=== PATIENT | female | born 1995 | race Caucasian/White ===

== ENCOUNTER → 2018-10-12 | Outpatient (CLI) | payer OTHER ==
[~2018-10-12] MED LIST: DIVA500T2 PO; ETON1VAG VG; IBUP200C6 PO; SUMA1TAB PO
== END | disposition home or self-care (01) ==
LOC: CFH 09:42
PROVIDERS: ATTEND Obstetrics & Gynecology
DX: R10.32 Left lower quadrant pain (principal); Z97.5 Presence of (intrauterine) contraceptive device
CPT/HCPCS: 74018

== ENCOUNTER 2018-10-30 08:47 | Day surgery (SDC) | payer OTHER ==
[~2018-10-30] VITALS: Ht 160 cm; Wt 61.1 kg
[2018-10-30 09:04] VITALS: BP 119/72
[2018-10-30] MEDS ORDERED: ACETAMINOPHEN 500 MG TABLET PO ONE (09:30)
[2018-10-30] MEDS ORDERED: DIAZEPAM 5 MG TABLET PO ONE (09:30)
[2018-10-30] MEDS ORDERED: LACTATED RINGERS 1,000 ML IV SCH (09:46)
[2018-10-30] MEDS ORDERED: FLUORESCEIN SODIUM 500 MG/5 ML ONE (10:00)
[2018-10-30] MEDS ORDERED: LIDOCAINE 1%-EPI 1:100K, 20ML ONE ×2 (10:00→11:16)
[2018-10-30 10:03] LABS: BASOPHILS # (AUTO) 0.04 x10^3/uL (0-0.1); BASOPHILS % (AUTO) 1 % (0-1); EOSINOPHILS # (AUTO) 0.11 x10^3/uL (0-0.4); EOSINOPHILS % (AUTO) 2 % (1-7); LYMPHOCYTES # (AUTO) 2.01 x10^3/uL (1-3.4); LYMPHOCYTES % (AUTO) 32 % (22-44); MD NO; MEAN CORPUSCULAR HEMOGLOBIN 29.9 pg (27.0-34.8); MEAN CORPUSCULAR HGB CONC 33.5 g/dL (32.4-35.8); MEAN CORPUSCULAR VOLUME 89.5 fL (80-100); MEAN PLATELET VOLUME 8.1 fL (7.4-10.4); MONOCYTES # (AUTO) 0.42 x10^3/uL (0.2-0.8); MONOCYTES % (AUTO) 7 % (2-9); NEUTROPHILS # (AUTO) 3.69 x10^3/uL (1.8-6.8); NEUTROPHILS % (AUTO) 59 % (42-75); PLATELET COUNT 228 x10^3/uL (130-400); RED CELL DISTRIBUTION WIDTH 13.6 % (9.6-15.2)
[2018-10-30 10:15] LABS: CALCIUM 9.3 mg/dL (8.5-10.1)
[2018-10-30 10:42] LABS: ALANINE AMINOTRANSFERASE 14 U/L (12-78); ALBUMIN 4.2 g/dL (3.4-5.0); ALKALINE PHOSPHATASE 74 U/L (45-117); ANION GAP 7 mmol/L (5-15); BILIRUBIN,TOTAL 0.3 mg/dL (0.2-1.0); CHLORIDE 111 mmol/L (98-107); TOTAL PROTEIN 7.5 g/dL (6.4-8.2)
[2018-10-30 10:51] LABS: HCG UR SG 1.023 (1.003-1.030); MICROSCOPIC AUTO
[2018-10-30] MEDS ORDERED: MIDAZOLAM 1 MG/ML, 2ML ONE (10:52)
[2018-10-30] MEDS ORDERED: FENTANYL PF 250 MCG/5ML ONE (10:53)
[2018-10-30 10:59] LABS: CULTURE INDICATED? YES
[2018-10-30] MEDS ORDERED: PROPOFOL 10 MG/ML, 20ML ONE (11:40)
[2018-10-30] MEDS ORDERED: ONDANSETRON ODT 8 MG PO PRN (12:00)
[2018-10-30] MEDS ORDERED: PROMETHAZINE 25 MG/ML, 1ML IV PRN (12:00)
[2018-10-30] MEDS ORDERED: MEPERIDINE/PF 25MG/0.5ML IVPush PRN (12:00)
[2018-10-30] MEDS ORDERED: OXYcodone 5 MG/5 ML ORAL.SOL UDC PO PRN (12:00)
[2018-10-30] MEDS ORDERED: HYDROmorphone 2 MG/ML, 1ML IVPush PRN (12:00)
[2018-10-30] MEDS ORDERED: DIAZEPAM 5 MG/ML, 2ML IVPush PRN (12:00)
[2018-10-30] MEDS ORDERED: ONDANSETRON 2MG/ML, 2ML IV PRN (12:00)
[2018-10-30] MEDS ORDERED: ONDANSETRON 2MG/ML, 2ML ONE (12:12)
[2018-10-30] MEDS ORDERED: DEXAMETHASONE 4 MG/ML, 1ML ONE (12:12)
[2018-10-30] MEDS ORDERED: SUGAMMADEX 200 MG/2 ML IVPush ONE (12:12)
[2018-10-30] MEDS ORDERED: CEFAZOLIN 1,000 MG ONE (12:12)
[2018-10-30] MEDS ORDERED: ROCURONIUM 10MG/ML,5ML ONE (12:12)
[2018-10-30] MEDS ORDERED: GLYCOPYRROLATE 0.2MG/1ML, 5ML ONE (12:12)
[2018-10-30] MEDS ORDERED: NEOSTIGMINE 1 MG/ML, 10ML ONE (12:12)
[2018-10-30] MEDS ORDERED: SUCCINYLCHOLINE 20 MG/ML, 10ML ONE (12:12)
[2018-10-30] MEDS ORDERED: OXYcodone 5 MG/5 ML ORAL.SOL UDC ONE ×3 (12:54)
[2018-10-30] MEDS ORDERED: FENTANYL PF 100 MCG/2ML ONE (12:54)
[2018-10-30] MEDS: FENTANYL PF 100 MCG/2ML IV PRN ×3 (12:57→13:16)
[2018-10-30] MEDS ORDERED: DIPHENHYDRAMINE 50 MG/ML, 1ML ONE (13:22)
[2018-10-30] MEDS ORDERED: DIPHENHYDRAMINE 50 MG/ML, 1ML IVPush PRN (13:30)
== END 2018-10-30 16:50 | disposition home or self-care (01) ==
LOC: OUT 08:47
PROVIDERS: ATTEND Obstetrics & Gynecology Gynecology
DX: T83.32XA Displacement of intrauterine contraceptive device, initial encounter (principal); N73.6 Female pelvic peritoneal adhesions (postinfective); Y83.8 Other surgical procedures as the cause of abnormal reaction of the patient, or of later complication, without mention of misadventure at the time of the procedure; Y92.89 Other specified places as the place of occurrence of the external cause; Z88.1 Allergy status to other antibiotic agents; Z88.5 Allergy status to narcotic agent; Z88.8 Allergy status to other drugs, medicaments and biological substances
CPT/HCPCS: 36415; 49320; 80053; 81001; 81025; 85025; 87086; J0330; J0690; J1100; J1200; J2175; J2250; J2405; J2704; J2710; J3010; J3490; J7120